=== PATIENT | female | born 1945 | race Native Hawaiian/Other Pacific Islander ===

== ENCOUNTER 2018-01-14 03:26 | Emergency (ER) | payer OTHER ==
[~2018-01-14] VITALS: Ht 162.6 cm; Wt 71.7 kg
[2018-01-14 04:05] LABS: PLATELET COUNT 296 K/uL (152-353)
[2018-01-14 04:10] LABS: POTASSIUM 4.7 mmol/L (3.6-5.2)
[2018-01-14 05:01] VITALS: BP 135/76; TEMP 98.4
[2018-01-14] MEDS ORDERED: FLUTMIS6 INH (06:00)
[2018-01-14] MEDS ORDERED: ALPRAZOLAM PO (06:02)
[2018-01-14] MEDS ORDERED: AMLODIPINE-BENAZEPRI PO (06:05)
[2018-01-14] MEDS ORDERED: ANAS1TAB PO (06:06)
[2018-01-14] MEDS ORDERED: [UNRECOGNIZED DRUG - OTHER] OP (06:08)
[2018-01-14] MEDS ORDERED: DEPAKOTE ER PO (06:09)
[2018-01-14] MEDS ORDERED: DONE5TAB PO (06:10)
[2018-01-14] MEDS ORDERED: FAMO20TA4 PO (06:11)
[2018-01-14] MEDS ORDERED: GABA300C2 PO (06:12)
[2018-01-14] MEDS ORDERED: MELATONIN5 MG PO (06:13)
[2018-01-14] MEDS ORDERED: MELOXICAM15 MG PO (06:14)
[2018-01-14] MEDS ORDERED: MEMANTINE HCL10 MG PO (06:15)
[2018-01-14] MEDS ORDERED: MULTIVITAMI1 PO (06:16)
[2018-01-14] MEDS ORDERED: ONDA4TAB3 PO (06:18)
[2018-01-14] MEDS ORDERED: OXYCODONE-ACETAMINOP PO (06:21)
[2018-01-14] MEDS ORDERED: ROBITUSSIN DM PO (06:24)
[2018-01-14] MEDS ORDERED: SENOKOT8.6 MG PO (06:25)
[2018-01-14] MEDS ORDERED: SERT50TA PO (06:28)
[2018-01-14] MEDS ORDERED: ASCO500T18 PO (06:32)
== END 2018-01-14 05:05 | disposition other institution (70) ==
LOC: ED 03:26
PROVIDERS: Internal Medicine
DX: R41.0 Disorientation, unspecified (principal); F03.90 Unspecified dementia, unspecified severity, without behavioral disturbance, psychotic disturbance, mood disturbance, and anxiety; Z04.6 Encounter for general psychiatric examination, requested by authority
CPT/HCPCS: 36415; 80053; 81000; 85027; 93005; 99285